=== PATIENT | male | born 1945 | race Caucasian/White ===

== ENCOUNTER 2018-03-13 07:40 | Inpatient (IN) | payer MEDICARE, BC ==
[2018-03-13] MEDS ORDERED: HYDROcodone/APAP 5-325MG 1 EACH TAB PO STA (08:14)
--- NOTE | 2018-03-13 08:18 | ED ---
Lower Extremity Injury HPI - General Source: patient, family, RN notes reviewed Mode of arrival: wheelchair Limitations: no limitations <Lang Fairchild - Last Filed: 03/13/18 14:37> <Salvador Gibson - Last Filed: 03/13/18 15:09> - General Chief Complaint: Extremity Injury, Lower Stated Complaint: leg pain Time Seen by Provider: 03/13/18 07:51 - History of Present Illness Initial Comments: This is a 73-year-old male presents emergency Department with chief complaint of left buttocks, left leg pain. Patient states that he fell one week ago onto concrete. Patient states he is helping out with a poor and fell backwards. He states that he has been a bleeding disorder is a fall and sometimes difficult. He denies any head injury no loss conscious. Patient has a concern of possible DVT. Patient though admits that he does take Eliquis. Patient states that he sees a large area of bruising of the buttocks he does have pain areas from his buttocks down his leg. Patient denies any bowel, bladder incontinence or retention. Denies any saddle anesthesia or lower shunted paresthesias. (Lang Fairchild) - Related Data Home Medications Medication Instructions Recorded Confirmed Apixaban [Eliquis] 5 mg PO BID 03/13/18 03/13/18 Ginkgo Biloba 500 mg PO DAILY 03/13/18 03/13/18 Sertraline [Zoloft] 50 mg PO DAILY 03/13/18 03/13/18 Allergies Allergy/AdvReac Type Severity Reaction Status Date / Time No Known Allergies Allergy Verified 07/25/15 11:59 Review of Systems ROS Other: All systems not noted in ROS Statement are negative. <Lang Fairchild - Last Filed: 03/13/18 14:37> ROS Other: All systems not noted in ROS Statement are negative. <Salvador Gibson - Last Filed: 03/13/18 15:09> ROS Statement: Those systems with pertinent positive or pertinent negative responses have been documented in the HPI. Past Medical History Past Medical History: Atrial Fibrillation, CVA/TIA, Hyperlipidemia, Hypertension History of Any Multi-Drug Resistant Organisms: None Reported Additional Past Surgical History / Comment(s): Hernia repair, left wrist carpal tunnel Past Psychological History: No Psychological Hx Reported Smoking Status: Never smoker Past Alcohol Use History: Occasional Past Drug Use History: None Reported - Past Family History Brother(s) Family Medical History: Chest Pain / Angina, Myocardial Infarction ([place]) Father Family Medical History: Dementia, Myocardial Infarction ([place]) <Lang Fairchild - Last Filed: 03/13/18 14:37> General Exam Limitations: no limitations General appearance: alert, in no apparent distress Respiratory exam: Present: normal lung sounds bilaterally. Absent: respiratory distress, wheezes, rales, rhonchi, stridor Cardiovascular Exam: Present: regular rate, normal rhythm, normal heart sounds. Absent: systolic murmur, diastolic murmur, rubs, gallop, clicks GI/Abdominal exam: Present: soft, normal bowel sounds. Absent: distended, tenderness, guarding, rebound, rigid Extremities exam: Present: other (There is a large area of ecchymosis to left buttocks, moderate tenderness palpation, there is mild tenderness to left femur region there is equal pedal pulses of lower extremity neurovascular intact, there is no tenderness to the tib-fib region on the left foot. Patient has pain with range of motion the left leg) Back exam: Present: full ROM, tenderness (Minimal lower lumbar), vertebral tenderness. Absent: paraspinal tenderness Skin exam: Present: warm, dry, intact, normal color. Absent: rash <Lang Fairchild - Last Filed: 03/13/18 14:37> Course <Lang Fairchild - Last Filed: 03/13/18 14:37> <Salvador Gibson - Last Filed: 03/13/18 15:09> Vital Signs 03/13/18 03/13/18 07:42 14:06 Temperature 97.8 F 97.9 F Pulse Rate 64 58 L Respiratory 18 16 Rate Blood Pressure 147/75 122/68 O2 Sat by Pulse 97 98 Oximetry - Reevaluation(s) Reevaluation #1: 03/13/18 15:08 PA supervision: I personally saw and examined the patient. I have reviewed and agree with the PA findings including all diagnostic interpretations treatment plans is written unless otherwise stated. I did discuss the case with Dr. Friedman who did come to see the patient in the emergency department. (Salvador Gibson ) Medical Decision Making - Lab Data Result diagrams: 03/13/18 11:20 08/20/18 11:20 <Lang Fairchild - Last Filed: 03/13/18 14:37> - Lab Data Result diagrams: 03/13/18 11:20 03/13/18 11:20 <Salvador Gibson - Last Filed: 03/13/18 15:09> - Lab Data Lab Results 03/13/18 03/13/18 03/13/18 Range/Units 11:20 11:20 11:20 WBC 4.8 (3.8-10.6) k/uL RBC 3.55 L (4.30-5.90) m/uL Hgb 11.8 L (13.0-17.5) gm/dL Hct 35.4 L (39.0-53.0) % MCV 99.8 (80.0-100.0) fL MCH 33.3 (25.0-35.0) pg MCHC 33.4 (31.0-37.0) g/dL RDW 13.1 (11.5-15.5) % Plt Count 156 (150-450) k/uL Neutrophils % 84 % Lymphocytes % 11 % Monocytes % 4 % Eosinophils % 0 % Basophils % 0 % Neutrophils # 4.0 (1.3-7.7) k/uL Lymphocytes # 0.5 L (1.0-4.8) k/uL Monocytes # 0.2 (0-1.0) k/uL Eosinophils # 0.0 (0-0.7) k/uL Basophils # 0.0 (0-0.2) k/uL PT (9.0-12.0) sec INR (<1.2) APTT (22.0-30.0) sec Sodium 132 L (137-145) mmol/L Potassium 4.2 (3.5-5.1) mmol/L Chloride 100 (98-107) mmol/L Carbon Dioxide 25 (22-30) mmol/L Anion Gap 7 mmol/L BUN 18 (9-20) mg/dL Creatinine 0.60 L (0.66-1.25) mg/dL Est GFR (CKD-EPI)AfAm >90 (>60 ml/min/1.73 sqM) Est GFR (CKD-EPI)NonAf >90 (>60 ml/min/1.73 sqM) Glucose 113 H (74-99) mg/dL Plasma Lactic Acid Abraham 0.8 (0.7-2.0) mmol/L Calcium 8.8 (8.4-10.2) mg/dL Total Bilirubin 0.8 (0.2-1.3) mg/dL AST 38 (17-59) U/L ALT 66 (21-72) U/L Alkaline Phosphatase 46 (38-126) U/L Creatine Kinase (55-170) U/L Total Protein 6.6 (6.3-8.2) g/dL Albumin 4.1 (3.5-5.0) g/dL 03/13/18 03/13/18 Range/Units 11:20 11:20 WBC (3.8-10.6) k/uL RBC (4.30-5.90) m/uL Hgb (13.0-17.5) gm/dL Hct (39.0-53.0) % MCV (80.0-100.0) fL MCH (25.0-35.0) pg MCHC (31.0-37.0) g/dL RDW (11.5-15.5) % Plt Count (150-450) k/uL Neutrophils % % Lymphocytes % % Monocytes % % Eosinophils % % Basophils % % Neutrophils # (1.3-7.7) k/uL Lymphocytes # (1.0-4.8) k/uL Monocytes # (0-1.0) k/uL Eosinophils # (0-0.7) k/uL Basophils # (0-0.2) k/uL PT 11.6 (9.0-12.0) sec INR 1.2 H (<1.2) APTT 24.3 (22.0-30.0) sec Sodium (137-145) mmol/L Potassium (3.5-5.1) mmol/L Chloride (98-107) mmol/L Carbon Dioxide (22-30) mmol/L Anion Gap mmol/L BUN (9-20) mg/dL Creatinine (0.66-1.25) mg/dL Est GFR (CKD-EPI)AfAm (>60 ml/min/1.73 sqM) Est GFR (CKD-EPI)NonAf (>60 ml/min/1.73 sqM) Glucose (74-99) mg/dL Plasma Lactic Acid Abraham (0.7-2.0) mmol/L Calcium (8.4-10.2) mg/dL Total Bilirubin (0.2-1.3) mg/dL AST (17-59) U/L ALT (21-72) U/L Alkaline Phosphatase (38-126) U/L Creatine Kinase 113 (55-170) U/L Total Protein (6.3-8.2) g/dL Albumin (3.5-5.0) g/dL Disposition <Lang Fairchild - Last Filed: 03/13/18 14:37> <Salvador Gibson - Last Filed: 03/13/18 15:09> Clinical Impression: Fall, Traumatic hematoma of buttock, Left leg claudication, Femoral artery stenosis, left Disposition: ADMITTED IP TO THIS HOSP Condition: Stable Referrals: Nonstaff,Physician [Primary Care Provider] - 1-2 days
--- NOTE | 2018-03-13 09:00 | XR ---
Lumbar spine HISTORY: Trauma one week prior and pain 3 views of the lumbar spine There is a dextroscoliosis centered at L3. Bone mineralization is reduced. Surgical clips noted in th e upper abdomen, vascular calcifications noted incidentally. Iliac artery likely ectatic. Lumbar vert ebral bodies show preserved height. There is multilevel spondylosis. Disc spaces somewhat reduced tho ught to be L5-S1, there may be rudimentary rib L1. Abdominal aorta likely ectatic. IMPRESSION: No acute fracture or subluxation. Scoliosis and degenerative disc disease. Additional fin dings above.
--- NOTE | 2018-03-13 09:02 | XR ---
EXAMINATION TYPE: XR Hip LT and AP Pelvis DATE OF EXAM: 03/13/2018 COMPARISON: None HISTORY: Trauma one week prior, pain TECHNIQUE: A single AP view of the pelvis is obtained. Two views of the left hip are obtained. FINDINGS: Low bone mineral could limit sensitivity. There is no acute fracture/dislocation evident in the pelvis. The hip and sacroiliac joints appear symmetric and unremarkable. The overlying soft ti ssue appears unremarkable. Two views of left hip show no acute fracture or dislocation. No focal lytic or sclerotic lesion seen in the proximal left femur. The overlying soft tissue is remarkable for extensive vascular calcific ation. Marginal spurring, joint space loss suggests osteoarthritis within the hips, difficult to exc lude femoral acetabular impingement, femoral neck prominent is noted bilaterally. IMPRESSION: There is no acute fracture or dislocation in the pelvis or left hip. Low bone mineraliza tion may limit sensitivity, consider alternate imaging as clinically indicated.
--- NOTE | 2018-03-13 09:38 | US ---
EXAMINATION TYPE: US venous doppler duplex LE LT DATE OF EXAM: 03/13/2018 9:27 AM COMPARISON: NONE CLINICAL HISTORY: Pain. SIDE PERFORMED: Left TECHNIQUE: The lower extremity deep venous system is examined utilizing real time linear array sonog jimenez with graded compression, doppler sonography and color-flow sonography. VESSELS IMAGED: External Iliac Vein (EIV) Common Femoral Vein Deep Femoral Vein Greater Saphenous Vein * Femoral Vein Popliteal Vein Small Saphenous Vein * Proximal Calf Veins (* superficial vessels) Left Leg: Negative for DVT Patient had difficulty adducting leg, some technical limitations. Grayscale, color doppler, spectral doppler imaging performed of the deep veins of the left lower extr emity. There is normal flow, compressibility, vascular waveforms. IMPRESSION: Slightly suboptimal study due to patient difficulty positioning but no convincing eviden ce for acute DVT in the left lower extremity.
--- NOTE | 2018-03-13 10:26 | CT ---
EXAMINATION TYPE: CT hip LT wo con DATE OF EXAM: 03/13/2018 COMPARISON: 03/13/2018 left hip HISTORY: Leg pain after fall CT DLP: 430.40 mGycm Automated exposure control for dose reduction was used. TECHNIQUE: Axial images 3 mm thick sections. Reconstructed images in the coronal and sagittal plane. FINDINGS: No acute fractures are evident. The femoral head articulates with the acetabulum. There is narrowing of the joint space compatible with osteoarthritic degenerative change. Sacroiliac joint degenerative changes noted. Injecting common femoral artery calcification at the left hip should be considered. IMPRESSION: 1. NO ACUTE DISPLACED FRACTURES ARE IDENTIFIED. 2. OBSTRUCTING CALCIFICATION WITHIN NORMAL LEFT COMMON FEMORAL ARTERY SHOULD BE CONSIDERED.
[2018-03-13] MEDS ORDERED: HYDROmorphone 0.5 MG/0.5 ML SYRINGE IVP STA (10:42)
[2018-03-13] MEDS ORDERED: ONDANSETRON 4 MG/2 ML VIAL IVP STA (10:42)
[2018-03-13] MEDS ORDERED: RX INFO: IV CONTRAST WAS GIVEN 1 EACH MISC MISCELLANE PRN (10:42)
[2018-03-13 11:47] LABS: Basophils % (A) 0 %; Eosinophils % (A) 0 %; HCT 35.4 % (39.0-53.0); HGB 11.8 gm/dL (13.0-17.5); Lymphocytes # (A) 0.5 k/uL (1.0-4.8); Lymphocytes % (A) 11 %; MCH 33.3 pg (25.0-35.0); MCHC 33.4 g/dL (31.0-37.0); MCV 99.8 fL (80.0-100.0); Mean Platelet Volume 7.8; Monocytes # (A) 0.2 k/uL (0-1.0); Monocytes % (A) 4 %; Neutrophils % (A) 84 %; Platelet Count 156 k/uL (150-450); RBC 3.55 m/uL (4.30-5.90); RDW 13.1 % (11.5-15.5); WBC 4.8 k/uL (3.8-10.6)
[2018-03-13 11:55] LABS: ALT 66 U/L (21-72); AST 38 U/L (17-59); Albumin 4.1 g/dL (3.5-5.0); Alkaline Phosphatase 46 U/L (38-126); Anion Gap 7 mmol/L; Blood Urea Nitrogen 18 mg/dL (9-20); Calcium 8.8 mg/dL (8.4-10.2); Carbon Dioxide 25 mmol/L (22-30); Chloride 100 mmol/L (98-107); Glucose 113 mg/dL (74-99); Potassium 4.2 mmol/L (3.5-5.1); Sodium 132 mmol/L (137-145); Total Bilirubin 0.8 mg/dL (0.2-1.3); Total Protein 6.6 g/dL (6.3-8.2)
[2018-03-13 12:01] LABS: INR 1.2 (<1.2); Partial Thromboplastin Time 24.3 sec (22.0-30.0); Prothrombin Time 11.6 sec (9.0-12.0)
--- NOTE | 2018-03-13 14:02 | CT ---
EXAMINATION TYPE: CT angio abd aorta w/Runoff DATE OF EXAM: 03/13/2018 COMPARISON: INDICATION: Left hip pain after fall 1 week ago. DLP: 1469.9 mGycm, Automated exposure control for dose reduction was used. CONTRAST: 125 mL of Isovue 370. Study performed TECHNIQUE: Axial images were obtained from above the diaphragm to the pubic rami in the axial plane a t 5 mm thick sections. Reconstructed images are reviewed on the computer in the coronal plane. FINDINGS: Limited CT sections are obtained the lung bases. There is a right posterior lateral lung base infilt rate. Correlate for atelectasis or pneumonia.. CT ABDOMEN: Timing of contrast for evaluation of the arterial system. Vascular calcifications with to rtuous aorta. Aorta common iliac external iliac common femoral arteries appear patent. There is some fusiform prominence of the distal right common iliac artery with dimension 1.8 cm. There is a 1.2 cm opening in the periumbilical region with mesenteric fat compatible with hernia. Liver: Normal Spleen: Normal Pancreas: Normal Adrenal glands: The adrenal glands are normal. Gallbladder: Normal Kidneys: No masses are evident. No hydronephrosis is present. No cysts are present. Delayed images were obtained through the kidneys, which remain unremarkable. Aorta: Vascular calcification is within the aorta. Inferior vena cava: Normal. CT PELVIS: There is a large fecal bolus present at the rectum. Loops of bowel within the abdomen and pelvis are normal. There are loops of bowel which are incom pletely distended or lack oral contrast limiting their evaluation. Appendix: Not visualized. No suspicious inflammatory changes are evident. Urinary bladder: Distended but otherwise unremarkable Genitourinary structures: Prostate is prominent. Osseous structures: No suspicious lytic or sclerotic lesions. CTA: 3-D imaging is performed by technologist on the ventricular computer. The aorta is tortuous and contains vascular calcification. No aneurysmal dilatation is evident. The a ortic bifurcation appears normal. The right common iliac artery as described as a 1.8 cm fusiform pro minence of the distal right common iliac artery. Internal and external iliac vessels appear normal wi th calcified morales. Iliac vessels are patent to the common femoral arteries. At the left common femoral artery there is a large calcification which appears to nearly obstruct the left common femoral artery. However, contrast is identified within the left superficial femoral stephie ry. This may be delayed flow or critical stenosis. The right common femoral artery is patent. There is atheromatous plaque within the distal common femo ral artery without complete obstruction. The superficial right femoral artery is patent. Profunda fem esa vessels are patent bilaterally. Delayed images were obtained through the distal superficial femoral arteries into the lower extremiti es. There appear to be some areas of focal narrowing within the superficial femoral arteries bilatera lly, greater on the left. Contrast timing however limits this evaluation. The distal superficial femo ral arteries are patent into the popliteal arteries. The popliteal arteries are patent to the trifurc ation vessels bilaterally. The right anterior tibial artery appears to be obstructed within its distal third. The right peroneal artery appears to be obstructed near the level of the ankle. The right dorsalis pedis artery appears to be patent to just above the level of the ankle the lowest portion of the study within the field-o f-view. Trifurcation vessels appear to be obscured in the midportion of the left calf region. It is uncertain whether this is related to delayed flow on the left or if these are obstructed. IMPRESSIONS: 1. Suspected critical stenosis or obstruction of the distal left common femoral artery. 2. Delayed flow or obstruction of distal trifurcation vessels within the left lower extremity. 3. Limited flow to the right distal dorsalis pedis artery. 4. Suspected areas of stenosis within the superficial femoral arteries, more so on the left.
[2018-03-13] MEDS ORDERED: ONDANSETRON 4 MG/2 ML VIAL IVP PRN (14:37)
[2018-03-13] MEDS ORDERED: HYDROcodone/APAP 5-325MG 1 EACH TAB PO PRN (15:09)
[2018-03-13] MEDS ORDERED: ALPRAZolam 0.25 MG TAB PO PRN (15:09)
[2018-03-13] MEDS ORDERED: ACETAMINOPHEN TAB 500 MG TAB PO PRN (15:09)
[2018-03-13 15:39] LABS: Appearance,Urine Cloudy (Clear); Bacteria,Urine Few /hpf; Bilirubin,Urine Negative (Negative); Blood,Urine Negative (Negative); Color,Urine Light Yellow; Glucose,Urine (UA) Negative (Negative); Ketones,Urine Negative (Negative); Leukocyte Esterase,Urine Small (Negative); Nitrite,Urine Positive (Negative); PH, Urine 7.5 (5.0-8.0); Protein,Urine Negative (Negative); RBC,Urine 2 /hpf (0-5); Specific Gravity,Urine 1.018 (1.001-1.035); Urobilinogen,Urine <2.0 mg/dL (<2.0); WBC,Urine 10 /hpf (0-5)
--- NOTE | 2018-03-13 15:44 | XR ---
EXAMINATION TYPE: XR chest 1V portable DATE OF EXAM: 03/13/2018 COMPARISON: 07/25/2015 INDICATION: CHF TECHNIQUE: Single frontal view of the chest is obtained. FINDINGS: The heart size is borderline in size. The pulmonary vasculature is normal. The lungs are clear. IMPRESSION: 1. No acute pulmonary process.
--- NOTE | 2018-03-13 16:07 | HP ---
HISTORY AND PHYSICAL CHIEF COMPLAINTS: Pain and swelling of the left hip and fall. HISTORY OF PRESENT ILLNESS: This 73-year-old gentleman with past history atrial fibrillation, CVA, hypertension, hyperlipidemia, history of hernia surgery being followed by primary physician elsewhere is apparently helping out somebody and the patient fell backwards. The patient had hematoma in the left hip and the patient admitted for further evaluation and treatment. Multiple evaluations showed no evidence of fracture, but however, significant occlusion of the iliac artery on the left side and superficial wounds on both sides are noted. There is no history of fever, rigors. No headache, loss of consciousness, seizures. PAST MEDICAL HISTORY: Atrial fibrillation, CVA, TIA, hypertension, hyperlipidemia. MEDICATIONS: Prior to admission include home medications are Zoloft 50 mg p.o. daily, [place] biloba 500 mg p.o. daily, Eliquis 5 mg p.o. b.i.d. ALLERGIES: None. FAMILY HISTORY: History of myocardial infarction in the family. SOCIAL HISTORY: No history of smoking. No history of alcohol intake. REVIEW OF SYSTEMS: ENT: Diminished hearing or vision. CARDIOVASCULAR: No angina. RESPIRATORY: As mentioned earlier. GI: No nausea. : No dysuria. NERVOUS SYSTEM: No numbness or weakness. ALLERGY/IMMUNOLOGY: No asthma or hay fever. MUSCULOSKELETAL: As mentioned earlier. HEMATOLOGY/ONCOLOGY: No history of anemia. ENDOCRINE: No history of diabetes or hypothyroidism. CONSTITUTIONAL: As mentioned earlier. DERMATOLOGY, negative. RHEUMATOLOGY: Negative. PSYCHIATRY: As mentioned earlier. PHYSICAL EXAM: Patient is alert, oriented x3. Pulse 58, blood pressure 120/60, respirations 16, temperature 97.9, pulse ox 98% on room air. HEENT: Oral mucosa moist. NECK: No jugular venous distention. No carotid bruit. No lymph node enlargement. CARDIOVASCULAR: S1, S2. RESPIRATORY: Breath sounds diminished in the bases. No rhonchi. No crackles. ABDOMEN: Soft, nontender. No mass palpable. LEGS: No edema, no swelling. Bilateral feet are cold, left more than the right. Pulses diminished bilaterally. Ecchymosis of the left hip also present. NERVOUS SYSTEM: Higher functions as mentioned earlier. Moves all four limbs. Mild diffuse weakness present especially on the left side. LYMPHATICS: No lymphadenopathy in the neck, axillae, groin. SKIN: No ulcer, rash or bleeding. LABS: At this time shows WBC 4.2, hemoglobin 11.8, sodium 132. ASSESSMENT: 1. Fall and left hip hematoma. 2. Peripheral vascular disease, left more than the right. 3. Anemia normocytic. 4. Atrial fibrillation. 5. History of cerebrovascular accident. 6. Hypertension. 7. Hyperlipidemia. 8. History of possible brainstem stroke. RECOMMENDATIONS AND DISCUSSION: I recommend to continue current medications, continue with monitoring, and symptomatic treatment. Otherwise at this time I recommend continue the current management and treatment. Otherwise at this time PT, OT evaluation. Cardiology evaluation for atrial fibrillation. The prognosis guarded because of multiple complex medical issues. Further recommendations to follow. See orders for details. MMODL / IJN: [id number] /
[2018-03-13] MEDS: HYDROmorphone 1 MG/ML 1 ML SYRINGE IVP PRN ×2 (16:23→20:31)
[2018-03-13] MEDS: MELATONIN 3 MG TABLET PO SCH (23:56)
[2018-03-14] MEDS: HYDROmorphone 1 MG/ML 1 ML SYRINGE IVP PRN ×2 (06:10→21:35)
[2018-03-14 07:46] LABS: Basophils % (A) 0 %; Eosinophils # (A) 0.1 k/uL (0-0.7); Eosinophils % (A) 1 %; HCT 34.7 % (39.0-53.0); HGB 11.6 gm/dL (13.0-17.5); Lymphocytes # (A) 0.6 k/uL (1.0-4.8); Lymphocytes % (A) 8 %; MCH 33.7 pg (25.0-35.0); MCHC 33.3 g/dL (31.0-37.0); MCV 101.1 fL (80.0-100.0); Macrocytosis Slight; Mean Platelet Volume 7.5; Monocytes # (A) 0.3 k/uL (0-1.0); Monocytes % (A) 3 %; Neutrophils % (A) 87 %; Platelet Count 161 k/uL (150-450); RBC 3.44 m/uL (4.30-5.90); RDW 13.5 % (11.5-15.5); WBC 8.1 k/uL (3.8-10.6)
[2018-03-14] MEDS: PANTOPRAZOLE 40 MG TABLET PO SCH (07:59)
[2018-03-14] MEDS: SERTRALINE 50 MG TAB PO SCH (07:59)
[2018-03-14 08:03] LABS: Anion Gap 8 mmol/L; Blood Urea Nitrogen 17 mg/dL (9-20); Calcium 8.8 mg/dL (8.4-10.2); Carbon Dioxide 24 mmol/L (22-30); Chloride 101 mmol/L (98-107); Glucose 94 mg/dL (74-99); Potassium 4.3 mmol/L (3.5-5.1); Sodium 133 mmol/L (137-145)
[2018-03-14] MEDS ORDERED: NON-FORMULARY DRUG (Ginkgo Biloba [Ginkgo Biloba] 500 MG) PO SCH (09:00)
[2018-03-14] MEDS: cefTRIAXone IN SWFI 1,000 MG/10 ML SYRINGE IVP SCH (11:53)
--- NOTE | 2018-03-14 11:59 | ECHOF ---
Referral Reason:hx afib and valve disease per pt MEASUREMENTS -------- HEIGHT: 175.3 cm WEIGHT: 79.4 kg BP: 110/63 IVSd: 0.8 cm (0.6 - 1.1) LVIDd: 5.7 cm (3.9 - 5.3) LVPWd: 1.0 cm (0.6 - 1.1) IVSs: 1.8 cm LVIDs: 2.2 cm LVPWs: 2.1 cm LAESV Index (A-L): 33.23 ml/m Ao Diam: 4.4 cm (2.0 - 3.7) AV Cusp: 2.8 cm (1.5 - 2.6) LA Diam: 3.4 cm (2.7 - 3.8) MV EXCURSION: 20.824 mm (> 18.000) MV EF SLOPE: 44 mm/s (70 - 150) EPSS: 0.5 cm MV E Anshul: 0.99 m/s MV DecT: 175 ms MV A Anshul: 0.86 m/s MV E/A Ratio: 1.15 AR PHT: 502 ms RAP: 5.00 mmHg RVSP: 31.57 mmHg FINDINGS -------- Sinus rhythm. This was a technically good study. The left ventricular size is normal. Left ventricular wall thickness is normal. Overall left vent ricular systolic function is normal with, an EF between 55 - 60 %. The right ventricle is normal in size and function. LA is midly dilated 29-33ml/m2. The right atrium is normal in size. The aortic valve is trileaflet and appears structurally normal. There is mild aortic regurgitation. The mitral valve leaflets are mildly thickened. Moderate mitral regurgitation is present. Mild tricuspid regurgitation present. There is no evidence of pulmonary hypertension. The right v entricular systolic pressure, as measured by Doppler, is 31.57mmHg. There is no pulmonic regurgitation present. The aortic root and ascending aorta are dilated measuring up to 4.4 mm The inferior vena cava is mildly dilated. There is no pericardial effusion. CONCLUSIONS -------- 1. Sinus rhythm. 2. This was a technically good study. 3. The left ventricular size is normal. 4. Left ventricular wall thickness is normal. 5. Overall left ventricular systolic function is normal with, an EF between 55 - 60 %. 6. LA is midly dilated 29-33ml/m2. 7. The aortic valve is trileaflet and appears structurally normal. 8. There is mild aortic regurgitation. 9. The mitral valve leaflets are mildly thickened. 10. Moderate mitral regurgitation is present. 11. Mild tricuspid regurgitation present. 12. There is no evidence of pulmonary hypertension. 13. There is no pulmonic regurgitation present. 14. The aortic root and ascending aorta are dilated measuring up to 4.4 mm. 15. The inferior vena cava is mildly dilated. 16. There is no pericardial effusion. TELEPHONE SWITCHBOARD OPERATOR: Nubia Leija RDCS
--- NOTE | 2018-03-14 13:04 | P.CRDCN ---
History of Present Illness History of present illness: Mr. 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 He also states he has a leaky valve, unsure which one. He follows with Dr. Anderson out of [facility]. We have been asked to see him in consultation for atrial fibrillation. He presented to the hospital yesterday after suffering a fall in his backyard one week ago. He states he was helping his grandchildren protocol around the pool lost his footing and fell back on his left hip. He has had significant pain since. He denies symptoms of chest pain, shortness of breath, dizziness or palpitations. He denies having any symptoms like this prior to falling or thereafter. He states his atrial fibrillation is under control. He last saw his communications designer within this year. No EKG obtained on this admission. Sounds to be in sinus mechanism at the time of my exam. He is currently maintained on Eliquis. This has been held since admission. Chest x-ray negative for an acute cardiopulmonary process. CT of the left hip negative for acute fracture. CT angiogram abdominal aorta with runoff reveals suspected critical stenosis or obstruction of the distal left common femoral artery with delayed flow or obstruction of the distal trifurcation vessels within the left lower extremity. Also suspected areas of stenosis within the superficial femoral arteries more so on the left. Laboratory data reviewed, hemoglobin 11.6, platelets 161, sodium 133, potassium 4.3, creatinine 0.74. Current cardiac medications include eliquis 5 mg BID. Review of Systems At the time of my exam: CONSTITUTIONAL: Denies fever. Denies chills. EYES: Denies blurred vision. Denies vision changes. Denies eye pain. EARS, NOSE, MOUTH & THROAT: Denies headache. Denies sore throat. Denies ear pain. CARDIOVASCULAR: Denies chest pain. Denies shortness of breath. Denies orthopnea. Denies PND. Denies palpitations. RESPIRATORY: Denies cough. GASTROINTESTINAL: Denies abdominal pain. Denies diarrhea. Denies constipation. Denies nausea. Denies vomiting. MUSCULOSKELETAL: Denies myalgias. INTEGUMENTARY: Denies pruitis. Denies rash. NEUROLOGIC: Denies numbness. Denies tingling. Denies weakness. PSYCHIATRIC: Denies anxiety. Denies depression. ENDOCRINE: Denies fatigue. Denies weight change. Denies polydipsia. Denies polyurina. GENITOURINARY: Denies burning, hematuria or urgency with micturation. HEMATOLOGIC: Denies history of anemia. Denies bleeding. Past Medical History Past Medical History: Atrial Fibrillation, CVA/TIA, Hyperlipidemia, Hypertension , Osteoarthritis (OA) Additional Past Medical History / Comment(s): stroke 2016 pt stated his left side still has some weakness, able to walke using cane/walker fell 1 week ago. has ankle/foot orthotic, drinks liquids slowly History of Any Multi-Drug Resistant Organisms: None Reported Past Surgical History: Hernia Repair Additional Past Surgical History / Comment(s): Hernia repair, left wrist carpal tunnel Past Anesthesia/Blood Transfusion Reactions: No Reported Reaction Smoking Status: Former smoker - Past Family History Brother(s) Family Medical History: Chest Pain / Angina, Myocardial Infarction ([place]) Father Family Medical History: Dementia, Myocardial Infarction ([place]) Medications and Allergies Home Medications Medication Instructions Recorded Confirmed Type Apixaban [Eliquis] 5 mg PO BID 03/13/18 03/13/18 History Ginkgo Biloba 500 mg PO DAILY 03/13/18 03/13/18 History Sertraline [Zoloft] 50 mg PO DAILY 03/13/18 03/13/18 History Allergies Allergy/AdvReac Type Severity Reaction Status Date / Time No Known Allergies Allergy Verified 07/25/15 11:59 Physical Exam Vitals: Vital Signs Temp Pulse Pulse Resp BP BP Pulse Ox 03/14/18 07:45 52 L 20 03/14/18 07:00 98.1 F 52 L 20 110/63 93 L 03/13/18 23:00 98.1 F 53 L 16 130/59 96 03/13/18 16:32 98 F 53 L 16 111/59 97 03/13/18 15:29 97.9 F 58 L 16 137/70 98 03/13/18 14:06 97.9 F 58 L 16 122/68 98 Intake and Output 03/13/18 03/14/18 03/14/18 22:59 06:59 14:59 Intake Total 20 480 Balance 20 480 Intake: IV 20 saline flush 20 Oral 480 Other: Voiding Method Self-Catheterization Self-Catheterization # Voids 1 2 GENERAL: This is a 73-year-old male in no apparent distress at the time of my examination. HEENT: Head is atraumatic, normocephalic. Pupils are equal, round. Sclerae anicteric. Conjunctivae are clear. Mucous membranes of the mouth are moist. Neck is supple. There is no jugular venous distention. No carotid bruit is heard. LUNGS: Clear to auscultation no wheezes, rales or rhonchi. No chest wall tenderness is noted on palpation or with deep breathing. HEART: Regular rate and rhythm with murmur at the left sternal border, no rubs or gallops. S1 and S2 heard. ABDOMEN: Soft, nontender. Bowel sounds are heard. No organomegaly noted. EXTREMITIES: No evidence of peripheral edema and no calf tenderness noted. NEUROLOGIC: Patient is awake, alert and oriented x3. Results 03/14/18 07:13 03/14/18 07:13 Cardiac Enzymes 03/13/18 Range/Units 11:20 AST 38 (17-59) U/L Coagulation 03/13/18 Range/Units 11:20 PT 11.6 (9.0-12.0) sec APTT 24.3 (22.0-30.0) sec CBC 03/13/18 03/14/18 Range/Units 11:20 07:13 WBC 4.8 8.1 (3.8-10.6) k/uL RBC 3.55 L 3.44 L (4.30-5.90) m/uL Hgb 11.8 L 11.6 L (13.0-17.5) gm/dL Hct 35.4 L 34.7 L (39.0-53.0) % Plt Count 156 161 (150-450) k/uL Comprehensive Metabolic Panel 03/13/18 03/14/18 Range/Units 11:20 07:13 Sodium 132 L 133 L (137-145) mmol/L Potassium 4.2 4.3 (3.5-5.1) mmol/L Chloride 100 101 (98-107) mmol/L Carbon Dioxide 25 24 (22-30) mmol/L BUN 18 17 (9-20) mg/dL Creatinine 0.60 L 0.74 (0.66-1.25) mg/dL Glucose 113 H 94 (74-99) mg/dL Calcium 8.8 8.8 (8.4-10.2) mg/dL AST 38 (17-59) U/L ALT 66 (21-72) U/L Alkaline Phosphatase 46 (38-126) U/L Total Protein 6.6 (6.3-8.2) g/dL Albumin 4.1 (3.5-5.0) g/dL Current Medications Generic Name Dose Route Start Last Admin Trade Name Freq PRN Reason Stop Dose Admin Acetaminophen 500 mg 03/13/18 15:09 Tylenol Tab PO Q6HR PRN Fever and/ or Pain Hydrocodone Bitart/Acetaminophen 1 each 03/13/18 15:09 [place] 5-325 PO Q6HR PRN Moderate Pain Alprazolam 0.25 mg 03/13/18 15:09 Xanax PO TID PRN Anxiety Ceftriaxone Sodium 1,000 mg 03/14/18 12:00 Rocephin IVP Q24HR JENNIFER Hydromorphone HCl 0.5 mg 03/13/18 14:37 03/14/18 06:10 Dilaudid IVP 0.5 mg Q3HR PRN Administration Moderate Pain Melatonin 3 mg 03/13/18 21:00 03/13/18 23:56 Melatonin PO 3 mg HS JENNIFER Administration Miscellaneous Information 1 each 03/13/18 10:42 Rx Info: Iv Contrast Was Given MISCELLANE 03/15/18 10:42 DAILY PRN Per Protocol Ondansetron HCl 4 mg 03/13/18 14:37 Zofran IVP Q8HR PRN Nausea And Vomiting Pantoprazole Sodium 40 mg 03/14/18 07:30 03/14/18 07:59 Protonix PO 40 mg [id number] JENNIFER Administration Sertraline HCl 50 mg 03/14/18 09:00 03/14/18 07:59 Zoloft PO 50 mg DAILY JENNIFER Administration Intake and Output 03/13/18 03/14/18 03/14/18 22:59 06:59 14:59 Intake Total 20 480 Balance 20 480 Intake: IV 20 saline flush 20 Oral 480 Other: Voiding Method Self-Catheterization Self-Catheterization # Voids 1 2 03/14/18 07:13 03/14/18 07:13 Assessment and Plan Assessment: ASSESSMENT Paroxysmal atrial fibrillation on long-term anticoagulation, currently maintaining sinus mechanism Mitral regurgitation History of CVA with residual left-sided weakness Left illiac artery occlusion PLAN Echocardiogram and Doppler study has been obtained and reviewed and reveals preserved left ventricular systolic function with ejection fraction 55-60%, mildly dilated left atrium and moderate mitral regurgitation present. Obtain baseline EKG for review. Eliquis should be resumed as soon as possible if no surgical intervention is planned to prevent embolic event. This has been communicated to the patient and the nurse. Awaiting vascular consult. Thank you kindly for this consultation. Follow up with his primary communications designer upon discharge. Nurse Practitioner note has been reviewed, I agree with a documented findings and plan of care. Patient was seen and examined.
--- NOTE | 2018-03-14 18:32 | PN ---
PROGRESS NOTE DATE OF SERVICE: 03/14/2018 This 73-year-old gentleman admitted with a fall and left hip hematoma has been closely monitored. Patient also has significant peripheral vascular disease. No chest pain. No palpitations. No fever. A 2D echo with Doppler was done which showed an ejection fraction of 55% to 60% with mild valvular abnormalities. No chest pain. No palpitations. No fever. PHYSICAL EXAMINATION: Alert and oriented x3. Pulse is 52, blood pressure 130/69, respiration 20, temperature 98 degrees, pulse ox 94% on room air. HEENT: Conjunctivae normal. Oral mucosa moist. NECK: No jugular venous distention. No carotid bruit. No lymph node enlargement. CARDIOVASCULAR SYSTEM: S1, S2 muffled. RESPIRATORY SYSTEM: Breath sounds diminished at the bases. A few scattered rhonchi. No crackles. ABDOMEN: Soft, non-tender. No mass palpable. LEGS: Left leg hematoma. NERVOUS SYSTEM: No focal deficit. LABS: WBC 8.2, hemoglobin 11.6. UA noted; possible UTI. ASSESSMENT: 1. Fall and left hip hematoma. 2. Peripheral vascular disease, left more than the right, with iliac occlusion possibly. 3. Urinary tract infection, present on admission. 4. Anemia, normocytic. 5. Atrial fibrillation. 6. History of cerebrovascular accident. 7. Hypertension. 8. Hyperlipidemia. 9. History of possible brainstem stroke. RECOMMENDATIONS AND DISCUSSION: I recommend to continue current medication, continue with the monitoring, symptomatic treatment. I recommend cardiology evaluation, vascular surgery evaluation. Guarded prognosis because of multiple complex medical issues. Further recommendations to follow. Eliquis to be restarted if Vascular Surgery is not planning any active intervention. Guarded prognosis. Further recommendations to follow. MMODL / IJN: [id number] /
--- NOTE | 2018-03-14 20:11 | CONS ---
CONSULTATION This is a 73-year-old gentleman who has been admitted to [facility] with history of fall at home and he developed a hematoma of the left hip area. Patient had an extensive workup, including CT of the pelvis, CT angiogram of the lower extremity and echocardiogram. The patient has history of atrial fibrillation, history of CVA, history of TIA, history of hypertension, history of hyperlipidemia, personal history of no known allergies. Family history of myocardial infarction in the past. PHYSICAL EXAMINATION: Patient was seen in his room. Patient walks with a cane. Neck is supple. No bruit appreciated. Chest is clear to auscultation. First and second sounds are normal. Abdomen is soft, nontender. VASCULAR: Brachial, radial pulses are palpable. Femorals are palpable. Dorsal pedis palpable bilateral. I have reviewed the angiogram. There is some atherosclerotic disease involving the aorta and the iliac artery. At this point, the patient has a chronic atherosclerotic disease. No evidence of ischemic changes. Plan is discussed with the patient. I will follow up in my office in 2 weeks as well as the hematoma on the gluteal area is concerned is stable. Discussed with Internal Medicine. From surgical point of view, patient can go home. I can follow in my office. MMODL / IJN: [id number] /
[2018-03-14] MEDS: MELATONIN 3 MG TABLET PO SCH (21:35)
[2018-03-15 08:21] LABS: Basophils % (A) 0 %; Eosinophils # (A) 0.2 k/uL (0-0.7); Eosinophils % (A) 4 %; HCT 31.3 % (39.0-53.0); HGB 10.8 gm/dL (13.0-17.5); Lymphocytes # (A) 0.8 k/uL (1.0-4.8); Lymphocytes % (A) 19 %; MCH 34.5 pg (25.0-35.0); MCHC 34.6 g/dL (31.0-37.0); MCV 99.5 fL (80.0-100.0); Mean Platelet Volume 7.8; Monocytes # (A) 0.4 k/uL (0-1.0); Monocytes % (A) 8 %; Neutrophils # (A) 2.9 k/uL (1.3-7.7); Neutrophils % (A) 67 %; Platelet Count 153 k/uL (150-450); RBC 3.14 m/uL (4.30-5.90); RDW 12.9 % (11.5-15.5); WBC 4.3 k/uL (3.8-10.6)
[2018-03-15 08:49] LABS: Anion Gap 7 mmol/L; Blood Urea Nitrogen 18 mg/dL (9-20); Calcium 8.5 mg/dL (8.4-10.2); Carbon Dioxide 25 mmol/L (22-30); Chloride 101 mmol/L (98-107); Glucose 94 mg/dL (74-99); Potassium 4.1 mmol/L (3.5-5.1); Sodium 133 mmol/L (137-145)
[2018-03-15] MEDS: SERTRALINE 50 MG TAB PO SCH (09:36)
[2018-03-15] MEDS: PANTOPRAZOLE 40 MG TABLET PO SCH (09:36)
[2018-03-15] MEDS: cefTRIAXone IN SWFI 1,000 MG/10 ML SYRINGE IVP SCH (09:36)
--- NOTE | 2018-03-15 10:35 | P.PN ---
Subjective Mr. Aguilera is seen and examined sitting up in bed eating breakfast. Denies symptoms of chest pain, shortness of breath, dizziness, palpitations or diaphoresis. He was seen in consultation by Vascular, Dr. Murry and was cleared to follow up as an outpatient. Echocardiogram obtained reveals preserved left ventricular systolic function with ejection fraction 55-60%, moderate MR and mild TR noted. Blood pressure 111/60 heart rate 59 afebrile maintaining oxygen saturation on room air. EKG obtained reveals sinus mechanism with first degree AV block. Laboratory data reviewed, hemoglobin 10.8, platelets 153, sodium 133, potassium 4.1, creatinine 0.7. Objective - Vital Signs Vital signs: Vital Signs Temp 97.7 F 03/15/18 06:21 Pulse 68 03/15/18 08:40 Resp 16 03/15/18 08:40 BP 111/60 03/15/18 06:21 Pulse Ox 95 03/15/18 06:21 Intake & Output 03/14/18 03/15/18 03/15/18 18:59 06:59 18:59 Intake Total 1280 10 Balance 1280 10 Intake: IV 10 saline flush 10 Oral 1280 Other: Voiding Method Self-Catheterization Self-Catheterization Self-Catheterization # Voids 1 - Exam GENERAL: Well-appearing, well-nourished and in no acute distress. NECK: Supple without JVD or thyromegaly. LUNGS: Breath sounds clear to auscultation bilaterally. Respiration equal and unlabored. No wheezes, rales or rhonchi. HEART: Regular rate and rhythm with murmur at left sternal border, no rubs or gallops. S1 and S2 heard. EXTREMITIES: Normal range of motion, no edema. No clubbing or cyanosis. Peripheral pulses intact. - Labs CBC & Chem 7: 03/15/18 07:15 03/15/18 07:15 Labs: Abnormal Lab Results - Last 24 Hours (Table) 03/15/18 03/15/18 Range/Units 07:15 07:15 RBC 3.14 L (4.30-5.90) m/uL Hgb 10.8 L (13.0-17.5) gm/dL Hct 31.3 L (39.0-53.0) % Lymphocytes # 0.8 L (1.0-4.8) k/uL Sodium 133 L (137-145) mmol/L Microbiology - Last 24 Hours (Table) 03/14/18 11:50 Urine Culture - Preliminary Urine,Catheterized Assessment and Plan Assessment: ASSESSMENT Paroxysmal atrial fibrillation on long-term anticoagulation, currently maintaining sinus mechanism Mitral regurgitation History of CVA with residual left-sided weakness Left illiac artery occlusion PLAN Resume eliquis 5 g BID, first dose now. Follow up with primary cement paver upon discharge. Nurse Practitioner note has been reviewed, I agree with a documented findings and plan of care. Patient was seen and examined.
[2018-03-15] MEDS: APIXABAN 5 MG TAB PO SCH ×3 (12:35→14:05)
[2018-03-15 14:47] VITALS: BP 133/70; PULSE 55; RESP 18; TEMP 98
--- NOTE | 2018-03-15 21:00 | DS ---
DISCHARGE SUMMARY FINAL DIAGNOSES: 1. Fall and left hip hematoma. 2. Peripheral vascular disease, left more than the right, with iliac occlusion. 3. Urinary tract infection, present on admission. 4. Anemia, normocytic. 5. Atrial fibrillation. 6. History of cerebrovascular accident. 7. Hypertension. 8. Hyperlipidemia. 9. History of possible brainstem stroke. DISCHARGE DISPOSITION: The patient will be discharged in stable condition with guarded prognosis. Patient is keen on going home. HISTORY OF PRESENT ILLNESS: This 73-year-old gentleman with past medical history of multiple medical problems was admitted with a fall and significant left hematoma and severe pain. There was no fracture. The CT scan showed evidence of peripheral vascular disease, also. Cardiology and Vascular Surgery saw the patient and recommended outpatient followup. A 2D echo was also done. Vascular Surgery recommended outpatient followup. A 2D echo done by Cardiology showed ejection fraction about 50% to 60%. So the patient will be discharged in stable condition with guarded prognosis. On exam, vitals are stable. CARDIOVASCULAR SYSTEM: S1, S2 muffled. ABDOMEN: Soft. NERVOUS SYSTEM: No focal deficit. DISCHARGE ADVICE AND MEDICATIONS: 1. Diet is cardiac. 2. Activity limited until followup. 3. Follow up with Cardiology, patient's own, in one week. 4. Follow up with Dr. Murry as advised. 5. Follow up with PCP in 2 to 3 days. 6. Eliquis 5 mg p.o. b.i.d. 7. Ginkgo biloba 500 mg p.o. daily. 8. Zoloft 50 mg daily. 9. Ceftin 500 mg p.o. b.i.d. for 3 days. 10.Tylenol p.r.n. for pain. Once again, the patient will be discharged in stable condition with guarded prognosis. MMODL / IJN: [id number] /
== END 2018-03-15 16:34 | disposition home or self-care (01) | DRG 605 ==
LOC: EC 07:40 → 5MS5E 15:08
PROVIDERS: ADMIT Hospitalist; ATTEND Hospitalist
DX: S30.0XXA Contusion of lower back and pelvis, initial encounter (principal); D68.9 Coagulation defect, unspecified; I69.354 Hemiplegia and hemiparesis following cerebral infarction affecting left non-dominant side; N39.0 Urinary tract infection, site not specified; S70.02XA Contusion of left hip, initial encounter; D64.9 Anemia, unspecified; E78.5 Hyperlipidemia, unspecified; I10 Essential (primary) hypertension; I44.0 Atrioventricular block, first degree; I48.0 Paroxysmal atrial fibrillation; W19.XXXA Unspecified fall, initial encounter; Z79.01 Long term (current) use of anticoagulants; Z82.49 Family history of ischemic heart disease and other diseases of the circulatory system; Z87.891 Personal history of nicotine dependence; Z79.899 Other long term (current) drug therapy; Z53.9 Procedure and treatment not carried out, unspecified reason; I08.3 Combined rheumatic disorders of mitral, aortic and tricuspid valves
CPT/HCPCS: 36415; 71045; 72100; 73502; 75635; 80048; 80053; 81001; 82550; 83605; 85025; 85610; 85730; 87040; 87077; 87086; 87186; 93005; 93306; 96374; 96375; 99285

== ENCOUNTER 2018-05-01 18:04 | Emergency (ER) | payer MEDICARE, BC ==
[2018-05-01 18:14] VITALS: BP 144/83; PULSE 59; RESP 18; TEMP 98.4
--- NOTE | 2018-05-01 18:53 | ED ---
Fall HPI - General Chief Complaint: Fall Stated Complaint: fall, facial injury Time Seen by Provider: 05/01/18 18:23 Source: patient Mode of arrival: wheelchair - History of Present Illness Initial Comments: This is a 73-year-old male the ER status post fall, patient fell forward landing on face, does have laceration above left eye with significant bleeding. No loss of consciousness, patient states he is on blood thinners. Denies any other injury from fall no other complaints of pain or injury MD Complaint: fall -: hour(s) (1) Fall From: standing When Fall Occurred: 1 hour CONFIGURATION SPECIALIST Fall Witnessed: no Place Fall Occurred: home Loss of Consciousness: none Prolonged Down Time?: no Symptoms Prior to Fall: none Location: head Severity: mild Severity scale (1-10): 1 Context: tripped/slipped Associated Symptoms: denies - Related Data Home Medications Medication Instructions Recorded Confirmed Apixaban [Eliquis] 5 mg PO BID 03/13/18 05/01/18 Ginkgo Biloba 500 mg PO DAILY 03/13/18 05/01/18 Sertraline [Zoloft] 50 mg PO DAILY 03/13/18 05/01/18 Allergies Allergy/AdvReac Type Severity Reaction Status Date / Time No Known Allergies Allergy Verified 05/01/18 18:52 Review of Systems ROS Statement: Those systems with pertinent positive or pertinent negative responses have been documented in the HPI. ROS Other: All systems not noted in ROS Statement are negative. Past Medical History Past Medical History: Atrial Fibrillation, CVA/TIA, Hyperlipidemia, Hypertension , Osteoarthritis (OA) Additional Past Medical History / Comment(s): stroke 2016 pt stated his left side still has some weakness, able to walke using cane/walker fell 1 week ago. has ankle/foot orthotic, drinks liquids slowly History of Any Multi-Drug Resistant Organisms: None Reported Past Surgical History: Hernia Repair Additional Past Surgical History / Comment(s): Hernia repair, left wrist carpal tunnel Past Anesthesia/Blood Transfusion Reactions: No Reported Reaction Past Psychological History: No Psychological Hx Reported Smoking Status: Former smoker Past Alcohol Use History: Occasional Past Drug Use History: None Reported - Past Family History Brother(s) Family Medical History: Chest Pain / Angina, Myocardial Infarction ([place]) Father Family Medical History: Dementia, Myocardial Infarction ([place]) General Exam Limitations: no limitations General appearance: alert, in no apparent distress Head exam: Present: normocephalic, normal inspection. Absent: atraumatic (5 cm laceration above left eye) Eye exam: Present: normal appearance, PERRL, EOMI. Absent: scleral icterus, conjunctival injection, periorbital swelling ENT exam: Present: normal exam, mucous membranes moist Neck exam: Present: normal inspection. Absent: tenderness, meningismus, lymphadenopathy Respiratory exam: Present: normal lung sounds bilaterally. Absent: respiratory distress, wheezes, rales, rhonchi, stridor Cardiovascular Exam: Present: regular rate, normal rhythm, normal heart sounds. Absent: systolic murmur, diastolic murmur, rubs, gallop, clicks GI/Abdominal exam: Present: soft, normal bowel sounds. Absent: distended, tenderness, guarding, rebound, rigid Extremities exam: Present: normal inspection, full ROM, normal capillary refill. Absent: tenderness, pedal edema, joint swelling, calf tenderness Back exam: Present: normal inspection Neurological exam: Present: alert, oriented X3, CN II-XII intact Psychiatric exam: Present: normal affect, normal mood Skin exam: Present: warm, dry, intact, normal color. Absent: rash Course Vital Signs 05/01/18 18:08 Temperature 98.4 F Pulse Rate 59 L Respiratory 18 Rate Blood Pressure 144/83 O2 Sat by Pulse 97 Oximetry - Reevaluation(s) Reevaluation #1: 05/01/18 20:49 Patient's medical records thoroughly reviewed Patient remains without significant complaint here in the emergency room Procedures - Laceration Laceration #1 Consent Obtained: verbal consent Time Out Performed: Yes Indication: laceration Site: face Size (cm): 5 Description: linear Depth: simple, single layer Anesthetic Used: lidocaine 1%, with epi Anesthesia Technique: local infiltration Pre-repair: wound explored, irrigated extensively Type of Sutures: nylon Size of Sutures: 4-0 Technique: simple, interrupted Patient Tolerated Procedure: well Medical Decision Making - Medical Decision Making 73 male the ER status post trip and fall. Patient doesn't head injury on [place]. Laceration repairs done here in the emergency room, CT is negative for traumatic injury, patient can be discharged home - Radiology Data Radiology results: report reviewed (CT brain C-spine negative for acute disease) , image reviewed Disposition Clinical Impression: Fall, Head injury, Facial laceration Disposition: HOME SELF-CARE Condition: Good Instructions: Fall Prevention for Older Adults (ED), Laceration (ED), Care For Your Stitches (ED) Is patient prescribed a controlled substance at d/c from ED?: No Referrals: Nonstaff,Physician [Primary Care Provider] - 1-2 days
--- NOTE | 2018-05-01 20:22 | CT ---
EXAMINATION TYPE: CT brain christine correia con DATE OF EXAM: 05/01/2018 COMPARISON: 07/25/2015 CT brain HISTORY: trauma, fall, large contusion and laceration above left eye CT DLP: 1377.9 mGycm Automated exposure control for dose reduction was used. TECHNIQUE: CT scan of the head and cervical spine are performed without contrast. FINDINGS: There is cerebral cortical atrophy. There is no mass effect nor midline shift. There is n o sign of intracranial hemorrhage. There is left frontal scalp soft tissue swelling. Calvarium is int act. There is narrowing of the disc space at C6-7 with spur formation. There is anterior spurring at C5-6 C6-7. The posterior elements are intact and there is mild multilevel cervical facet arthropathy. Skul l base is intact. IMPRESSION: Cerebral atrophy. No acute intracranial abnormality. Left frontal scalp soft tissue swelling. Brain i s stable compared to old exam. Spondylotic changes in the lower cervical spine. No fracture.
== END 2018-05-01 21:08 | disposition home or self-care (01) ==
LOC: EC 18:04
DX: S01.81XA Laceration without foreign body of other part of head, initial encounter (principal); I48.91 Unspecified atrial fibrillation; Z86.73 Personal history of transient ischemic attack (TIA), and cerebral infarction without residual deficits; Z87.891 Personal history of nicotine dependence; Z98.890 Other specified postprocedural states; Z79.01 Long term (current) use of anticoagulants; Z79.899 Other long term (current) drug therapy; W01.198A Fall on same level from slipping, tripping and stumbling with subsequent striking against other object, initial encounter; Y92.009 Unspecified place in unspecified non-institutional (private) residence as the place of occurrence of the external cause; Y93.89 Activity, other specified
CPT/HCPCS: 12013; 70450; 72125; 99283